=== PATIENT | female | born 1990 ===

== ENCOUNTER 2018-07-13 11:12 | Emergency (ER) | payer OTHER ==
[~2018-07-13] VITALS: Ht 165.1 cm; Wt 68.5 kg
== END 2018-07-13 20:17 | disposition home or self-care (01) ==
LOC: ER 11:12
DX: O26.891 Other specified pregnancy related conditions, first trimester (principal); Z04.1 Encounter for examination and observation following transport accident; Z34.81 Encounter for supervision of other normal pregnancy, first trimester; V89.2XXA Person injured in unspecified motor-vehicle accident, traffic, initial encounter; Y92.410 Unspecified street and highway as the place of occurrence of the external cause

== ENCOUNTER 2018-10-20 11:46 | Outpatient (CLI) | payer OTHER | END 2018-10-21 14:39 | disposition home or self-care (01) | LOC: OBS/DEL 11:46 | DX: O46.8X2 Other antepartum hemorrhage, second trimester (principal) ==

== ENCOUNTER 2018-11-17 14:48 | Inpatient (IN) | payer OTHER ==
[~2018-11-17] VITALS: Ht 165.1 cm; Wt 70.3 kg
[2018-11-26] MEDS ORDERED: PRENATAL TABLE1 EAC1 PO (14:10)
[2018-11-26] MEDS ORDERED: ASA-EC81 MG PO (14:10)
== END 2018-11-29 14:29 | disposition home or self-care (01) | DRG 833 ==
LOC: OBS/DEL 14:48 → LDR 21:39 → OB/GYN 11-27 13:54
PROVIDERS: ADMIT Obstetrics & Gynecology
PROC: BY4CZZZ Ultrasonography of Second Trimester, Single Fetus (ICD-10-PCS; principal; 2018-11-17)
PROC: 4A1HXCZ Monitoring of Products of Conception, Cardiac Rate, External Approach (ICD-10-PCS; 2018-11-17)
PROC: BY4CZZZ Ultrasonography of Second Trimester, Single Fetus (ICD-10-PCS; 2018-11-19)
PROC: BY4FZZZ Ultrasonography of Third Trimester, Single Fetus (ICD-10-PCS; 2018-11-24)
DX: O47.02 False labor before 37 completed weeks of gestation, second trimester (principal); O99.012 Anemia complicating pregnancy, second trimester; Z34.82 Encounter for supervision of other normal pregnancy, second trimester